=== PATIENT | male | born 1980 | race African-American/Black ===

== ENCOUNTER 2022-10-22 21:23 | Emergency (ER) | payer BC ==
[2022-10-22] MEDS ORDERED: Lidocaine 1% w/Epinephrine 1:100K 20 ML VIAL ONE (21:49)
[2022-10-22] MEDS ORDERED: Bacitracin 1 PK ONE (22:38)
[2022-10-22] MEDS ORDERED: Ibuprofen 200 MG TAB ONE (22:59)
== END 2022-10-22 23:25 | disposition home or self-care (01) ==
LOC: NAV ERS 21:23
DX: S01.01XA Laceration without foreign body of scalp, initial encounter (principal); S16.1XXA Strain of muscle, fascia and tendon at neck level, initial encounter; W22.8XXA Striking against or struck by other objects, initial encounter
CPT/HCPCS: 12002; 72125

== ENCOUNTER 2022-11-01 17:25 | Emergency (ER) | payer BC ==
[2022-11-01] MEDS ORDERED: Bacitracin 1 PK ONE (18:25)
== END 2022-11-01 18:26 | disposition home or self-care (01) ==
LOC: NAV ERS 17:25
DX: S01.01XD Laceration without foreign body of scalp, subsequent encounter (principal); W18.30XD Fall on same level, unspecified, subsequent encounter

== ENCOUNTER 2023-03-18 14:00 | Emergency (ER) | payer BC | END 2023-03-18 15:13 | disposition home or self-care (01) | LOC: NAV ERS 14:00 | DX: M25.562 Pain in left knee (principal) ==